=== PATIENT | female | born 1985 | race Two or more races ===

== ENCOUNTER → 2017-03-28 | Outpatient (CLI) | payer BC ==
[~2017-03-28] MED LIST: [UNRECOGNIZED DRUG - OTHER] PO
== END ==
LOC: STAR 15:53
PROVIDERS: ATTEND Orthopaedic Surgery
DX: Z02.9 Encounter for administrative examinations, unspecified (principal)

== ENCOUNTER 2017-04-04 10:16 | Day surgery (SDC) | payer BC ==
[~2017-04-04] VITALS: Ht 152.4 cm; Wt 67.5 kg
[~2017-04-04 10:16] MED LIST changes: +BUPIVACAINE/PF 0.5% ONE
[2017-04-04] MEDS ORDERED: LACTATED RINGERS 1,000 ML IV SCH (10:45)
[2017-04-04 10:47] VITALS: BP 113/74
[2017-04-04] MEDS ORDERED: LIDOCAINE 1%, 2ML ONE (10:52)
[2017-04-04 11:00] LABS: DAU SCREEN DISCLAIMER
[2017-04-04] MEDS ORDERED: LIDOCAINE 1%, 2ML SQ PRN (11:00)
[2017-04-04 11:10] LABS: HCG UR OBC PASS
[2017-04-04] MEDS ORDERED: MIDAZOLAM 1 MG/ML, 2ML ONE (11:30)
[2017-04-04] MEDS ORDERED: FENTANYL PF 100 MCG/2ML ONE ×2 (11:30)
[2017-04-04] MEDS ORDERED: LIDOCAINE/PF 1%, 30ML ONE (12:34)
[2017-04-04] MEDS ORDERED: HYDROmorphone 2 MG/ML, 1ML ONE (13:19)
[2017-04-04] MEDS ORDERED: hydrALAzine 20 MG/ML, 1ML IV PRN (13:30)
[2017-04-04] MEDS ORDERED: LABETALOL 5MG/ML, 20ML IV PRN (13:30)
[2017-04-04] MEDS ORDERED: ALBUTEROL/IPRATROPIUM 2.5MG/0.5MG, 3 ML NPPB PRN (13:30)
[2017-04-04] MEDS ORDERED: PROMETHAZINE 25 MG/ML, 1ML IV PRN (13:30)
[2017-04-04] MEDS ORDERED: ACETAMINOPHEN 325 MG TABLET PO PRN (13:30)
[2017-04-04] MEDS ORDERED: ONDANSETRON 2MG/ML, 2ML IVPush PRN (13:30)
[2017-04-04] MEDS ORDERED: FENTANYL PF 100 MCG/2ML IV PRN (13:30)
[2017-04-04] MEDS ORDERED: MIDAZOLAM 1 MG/ML, 2ML IV PRN (13:30)
[2017-04-04] MEDS ORDERED: HYDROmorphone 1 MG/ML, 1ML IV PRN (13:30)
[2017-04-04] MEDS ORDERED: OXYcodone 5 MG/5 ML ORAL.SOL UDC PO PRN (13:30)
[2017-04-04] MEDS ORDERED: MEPERIDINE/PF 25MG/0.5ML IVPush PRN (13:30)
[2017-04-04] MEDS ORDERED: EPINEPHRINE 1 MG/ML, 1ML ONE (14:27)
[2017-04-04] MEDS ORDERED: BUPIVACAINE/PF-EPI 0.5% 1:200K ONE (14:52)
[2017-04-04] MEDS ORDERED: LORazepam 2 MG/ML, 1ML ONE (15:11)
[2017-04-04] MEDS ORDERED: OXYcodone 5 MG/5 ML ORAL.SOL UDC ONE (16:29)
[2017-04-04] MEDS ORDERED: LORazepam 2 MG/ML, 1ML IVPush ONE (16:30)
[2017-04-04] MEDS ORDERED: METOCLOPRAMIDE 5 MG/ML, 2ML ONE (16:42)
[2017-04-04] MEDS ORDERED: CEFAZOLIN 1,000 MG ONE (16:42)
[2017-04-04] MEDS ORDERED: PROPOFOL 10 MG/ML, 20ML ONE (16:42)
[2017-04-04] MEDS ORDERED: ONDANSETRON 2MG/ML, 2ML ONE (16:42)
[2017-04-04] MEDS ORDERED: KETOROLAC 30 MG/1 ML ONE (16:42)
[2017-04-04] MEDS ORDERED: DEXAMETHASONE 4 MG/ML, 1ML ONE (16:42)
== END 2017-04-04 19:45 ==
LOC: OUT 10:16
PROVIDERS: ATTEND Orthopaedic Surgery
DX: S83.521A Sprain of posterior cruciate ligament of right knee, initial encounter (principal); S83.511A Sprain of anterior cruciate ligament of right knee, initial encounter; S83.281A Other tear of lateral meniscus, current injury, right knee, initial encounter; M65.861 Other synovitis and tenosynovitis, right lower leg; M79.4 Hypertrophy of (infrapatellar) fat pad; F41.9 Anxiety disorder, unspecified; F17.210 Nicotine dependence, cigarettes, uncomplicated; X58.XXXA Exposure to other specified factors, initial encounter; Y93.39 Activity, other involving climbing, rappelling and jumping off; Y99.8 Other external cause status; Y92.89 Other specified places as the place of occurrence of the external cause
CPT/HCPCS: 29881; 29888; 29889; 73560; 76000; 80307; 81025; C1713; C1762; J0171; J0690; J1100; J1170; J1885; J2060; J2250; J2405; J2704; J2765; J3010; J3490; J7120